=== PATIENT | female | born 1995 | race Asian ===

== ENCOUNTER 2023-05-09 14:02 | Emergency (ER) | payer OTHER ==
[~2023-05-09] VITALS: Ht 160 cm; Wt 59.0 kg
[2023-05-09 14:07] VITALS: BP_SYST 141; PULSE 67; RESP 18; TEMP 97.5; O2SAT 98
[2023-05-09] MEDS ORDERED: predniSONE 20 MG TABLET PO ONE (14:30)
[2023-05-09] MEDS ORDERED: DIPHENHYDRAMINE INJ 50 MG/ML VIAL IM ONE (14:30)
[2023-05-09] MEDS ORDERED: PRED20TA PO (15:09)
[2023-05-09] MEDS ORDERED: EPIN0.3P3 IM (15:09)
== END 2023-05-09 15:30 | disposition home or self-care (01) ==
LOC: SED 14:02
DX: T78.05XA Anaphylactic reaction due to tree nuts and seeds, initial encounter (principal); Z91.010 Allergy to peanuts; Z79.899 Other long term (current) drug therapy
CPT/HCPCS: 99283; 81025; 96372; J7512; J1200